=== PATIENT | female | born 1940 | race Caucasian/White ===

== ENCOUNTER → 2017-11-20 | Outpatient (CLI) | payer OTHER ==
[~2017-11-20] MED LIST: CYCL10; DICL25ER; HYDACE5 PO; LORA10 PO; LORA10ER; Micro-K10 MEQ PO; NAPR500; NAPR500 PO; Norco 5-325 Ta1 EACH PO; STOMUL; TRIHYD253B; VALSARTAN/HCTZ PO; VERA180ERB PO
[2017-11-21 16:02] LABS: Protein, Urine Quantitative 10.8 mg/dL (0.0-11.9)
== END | disposition home or self-care (01) ==
LOC: OLS 11:00 → LAB SHORT 11:00
PROVIDERS: Family Medicine
DX: R94.4 Abnormal results of kidney function studies (principal)
CPT/HCPCS: 81050; 84156

== ENCOUNTER 2017-11-27 00:16 | Emergency (ER) | payer OTHER ==
[~2017-11-27] VITALS: Ht 165.1 cm; Wt 86.2 kg
== END 2017-11-27 04:00 | disposition home or self-care (01) ==
LOC: ER 00:16
DX: R04.0 Epistaxis (principal); Z88.0 Allergy status to penicillin; Z79.899 Other long term (current) drug therapy; I10 Essential (primary) hypertension
CPT/HCPCS: 30901; 99283

== ENCOUNTER → 2021-09-06 | Outpatient (CLI) | payer OTHER | END | disposition home or self-care (01) | LOC: LAB SHORT 07:17 | DX: B35.1 Tinea unguium (principal) | CPT/HCPCS: 88305; 88312 ==

== ENCOUNTER 2024-08-06 18:54 | Emergency (ER) | payer OTHER ==
[~2024-08-06] VITALS: Ht 167.6 cm; Wt 59.0 kg
[2024-08-06 22:00] VITALS: BP 142/84
== END 2024-08-06 22:20 | disposition home or self-care (01) ==
LOC: ER 18:54
DX: S59.902A Unspecified injury of left elbow, initial encounter (principal); F03.90 Unspecified dementia, unspecified severity, without behavioral disturbance, psychotic disturbance, mood disturbance, and anxiety; I10 Essential (primary) hypertension; E78.5 Hyperlipidemia, unspecified; J45.909 Unspecified asthma, uncomplicated; K21.9 Gastro-esophageal reflux disease without esophagitis; Z88.0 Allergy status to penicillin; Z79.899 Other long term (current) drug therapy; W23.0XXA Caught, crushed, jammed, or pinched between moving objects, initial encounter
CPT/HCPCS: 73030; 73060; 73080; 73090; 99283-25

== ENCOUNTER 2024-08-08 09:44 | Observation (INO) | payer OTHER ==
[~2024-08-08] VITALS: Ht 160 cm; Wt 54.4 kg
[2024-08-08 10:00] LABS: Calcium, Ionized (POC) 1.15 mmol/L (1.10-1.46); Chloride (POC) 107 mmol/L (98-108); Creatinine (POC) 1.3 mg/dL (0.6-1.0); Glucose (ISTAT POC) 307 mg/dL (70-99); Hemoglobin (POC) 10.2 g/dL (12.0-16.0); Potassium (POC) 5.8 mmol/L (3.5-5.5); Sodium (POC) 144 mmol/L (135-148); Total CO2 (POC) 33 mmol/L (21-32)
[2024-08-08] MEDS ORDERED: Midazolam HCl 1MG / ML 2ML Vial IV ONE (10:35)
[2024-08-08] MEDS ORDERED: NS 1,000 ML IV ONE (10:48)
[2024-08-08 11:13] LABS: Hemoglobin 8.8 g/dL (11.5-16.0); Mean Corpuscular HGB 29.9 pg (26.0-34.0); Mean Corpuscular HGB Conc 29.3 g/dL (31.5-36.5); Mean Corpuscular Volume 102 fL (80-100); Mean Platelet Volume 12.8 fL (9.1-12.4); Platelet Count 139 K/mm3 (150-400); RDW Coefficient Variation 16.3 % (11.7-14.2); RDW Standard Deviation 61.4 fL (35.1-46.3); Red Blood Cell Count 2.94 M/mm3 (3.80-5.20); White Blood Cell Count 6.89 K/mm3 (4.00-11.30)
[2024-08-08 11:42] LABS: BAND PERCENT MAN 12 % (0-8); BASOPHILS PERCENT MAN 0 % (0-2); EOSINOPHILS ABSOLUTE MAN 0.06 K/mm3 (0.00-0.68); EOSINOPHILS PERCENT MAN 1 % (0-6); LYMPHOCYTES ABSOLUTE MAN 1.03 K/mm3 (0.84-5.20); LYMPHOCYTES PERCENT MAN 15 % (21-46); METAMYELOCYTE PERCENT MAN 3 % (0-0); MONOCYTES ABSOLUTE MAN 0.48 K/mm3 (0.16-1.47); MONOCYTES PERCENT MAN 7 % (4-13); NEUTROPHILS ABSOLUTE MAN 5.09 K/mm3 (1.96-9.15); SEG NEUTROPHILS PERCENT MAN 62 % (41-73); TOTAL CELLS COUNTED 100
[2024-08-08 12:26] LABS: Albumin, Blood 1.7 g/dL (3.4-5.0); Albumin/Globulin Ratio 0.4 (0.8-1.8); Bilirubin, Total 0.3 mg/dL (0.1-1.0); Bun/Creatinine Ratio 47.1 (12.0-20.0); Calcium, Blood 9.7 mg/dL (8.5-10.1); Creatinine, Blood 1.19 mg/dL (0.40-1.00); Globulin, Blood 3.9 g/dL (2.2-4.0); Magnesium, Blood 2.6 mg/dL (1.6-2.4); Potassium, Blood 5.2 mmol/L (3.5-5.5); Total Protein, Blood 5.6 g/dL (6.4-8.2)
[2024-08-08] MEDS ORDERED: Atropine Sulfate 1% Opth Soln 2ML BTL SL PRN (12:35)
[2024-08-08] MEDS ORDERED: FLU VACC TS2024-25(6MOS UP)/PF 45 MCG/0.5 ML SYRINGE IM SCH (12:35)
[2024-08-08] MEDS ORDERED: LORazepam 2 MG/ML 1ML Injection IV PRN (12:35)
[2024-08-08] MEDS ORDERED: Morphine Sulfate 20 MG/1ML 1 ML Oral Syringe PO PRN (12:50)
[2024-08-08 13:00] VITALS: BP 146/88
[2024-08-08] MEDS ORDERED: Morphine Sulfate 10 MG/ML 1MLSYR IV PRN (13:15)
--- NOTE | 2024-08-08 17:43 | NUR ---
DECISION WAS MADE FOR VENT LIBIRATION. MEDICATIONS AND CC ORDERS PLACED BY PROVIDER. REVIEWED MEDICATIONS AND MADE RECOMENDATIONS APPROPRIATE. DISCUSSED WITH BEDSIDE RN. SUPPORTIVE VISIT MADE TO FAMILY. PC WILL CONTINUE TO FOLLOW AND PROVIDE SUPPORT NEEDED
[2024-08-08] MEDS ORDERED: Sodium Bicarb 8.4% 50 mEq Syringe IV ONE (18:55)
[2024-08-08] MEDS ORDERED: EPINEPhrine HCl 0.1 MG/ML 10ML SYR XX ONE (18:55)
== END 2024-08-08 14:07 ==
LOC: ER 09:44 → ERHOLD 12:32
PROVIDERS: Student in an Organized Health Care Education/Training Program; ADMIT Internal Medicine
DX: I46.9 Cardiac arrest, cause unspecified (principal); J96.91 Respiratory failure, unspecified with hypoxia; S22.41XA Multiple fractures of ribs, right side, initial encounter for closed fracture; S22.20XA Unspecified fracture of sternum, initial encounter for closed fracture; X58.XXXA Exposure to other specified factors, initial encounter; J93.9 Pneumothorax, unspecified; Z51.5 Encounter for palliative care; I10 Essential (primary) hypertension; E78.5 Hyperlipidemia, unspecified; I12.9 Hypertensive chronic kidney disease with stage 1 through stage 4 chronic kidney disease, or unspecified chronic kidney disease; N18.9 Chronic kidney disease, unspecified; K21.9 Gastro-esophageal reflux disease without esophagitis; J45.909 Unspecified asthma, uncomplicated; Z88.0 Allergy status to penicillin; Z79.899 Other long term (current) drug therapy
CPT/HCPCS: 31500; 51702; 71045; 71260; 80047; 80053; 83735; 83880; 84484; 85014; 85025; 92950; 93005; 93010; 94002; 96365; 96366; 96368; 96375; 96376; 99291-25; A9270; G0378; J0171; J2060; J2250; J2270; J7030; J7060; Q9967